=== PATIENT | female | born 1980 | race African-American/Black ===

== ENCOUNTER 2016-11-18 03:45 | Inpatient (IN) | payer OTHER ==
[~2016-11-18 03:45] MED LIST: DEXTROSE 5%-LACTATED RINGERS 1,000 ML IV SCH
[2016-11-18] MEDS ORDERED: PROMETHAZINE HCL 25 MG/1 ML VIAL IVPUSH ONE (08:00)
[2016-11-18] MEDS ORDERED: BUTORPHANOL TARTRATE 1 MG/ML VIAL IVPUSH ONE (08:00)
[2016-11-18] MEDS ORDERED: AMPICILLIN - 100 ML IVPB ONE (08:10)
[2016-11-18] MEDS ORDERED: DEXTROSE 5%-LACTATED RINGERS 1,000 ML IV SCH (08:15)
--- NOTE | 2016-11-18 08:16 | HP ---
Admitting History and Physical - Admission Chief Complaint: labor pains History of Present Illness: 35 y/o at 38.6 weeks comes to labor and delivery with complaints of ctx. Per ppt, started at 145. She was check at 2am with 1-2cm/-3 and iv hydrated. THen re checked at 5am with same exam. She progreesed to 3-4 at 8am. SHe is a transfer from [facility] with good care. Gbs-pos, hiv neg, quant neg, rubella immune, hep neg History Source: Patient Limitations to Obtaining History: No Limitations - Past Medical History CUPROUS CHLORIDE HELPER: No: Alzheimer's, CVA, Dementia, Migraine, Multiple Sclerosis, Peripheral Neuropathy, Parkinson's, Seizure, Syncope, TIA, Vertigo, Other Cardiovascular: No: AFIB, Aneurysm, Aortic Insufficiency, Aortic Stenosis, CAD, CHF, Deep Vein Thrombosis, HTN, Hyperlipdemia, LA, Mitral Insufficiency, Mitral Stenosis, Murmur, Pulmonary Hypertension, Other Pulmonary: No: Asthma, Bronchitis, Cancer, COPD, O2 Dependent, Pneumonia, Previously Intubated, Pulmonary Embolus, Pulmonary Fibrosis, Sleep Apnea, Other Gastrointestinal: No: Ascites, Cancer, Constipation, Crohn's Disease, Diverticulitis, Diverticulosis, Esophageal Varices, Gastritis, GERD, GI Bleed, Hemorrhoids, Hiatal Hernia, Inflamatory Bowel Disease, Irritable Bowel Disease, Pancreatitis, Peptic Ulcer Disease, Ulcerative Colitis, Other Hepatobiliary: No: Cirrhosis, Cholelithiasis, Cholecystitis, Choledocholithiasis , Hepatitis A, Hepatitis B, Hepatitis C, Other Renal/: No: Renal Failure, Renal Inusuff, BPH, Cancer, Hematuria, Hemodialysis , Neurogenic Bladder, Renal Calculi, UTI, Other Reproductive: No: Ectopic , Endometriosis, Fibroids, PID, Polycystic Ovary Syndrome, Postmenopausal, Other ...: 3 ...Para: 2 Heme/Onc: No: Anemia, B12 Deficiency, Bleeding Disorder, Cancer, Current Chemotherapy, Current Radiation Therapy, Hemochromatosis, Hypercoaguable State, Myeloproliferative Synd, Sickle Cell Disease, Sickle Cell Trait, Thrombocytopenia, Other Infectious Disease: No: AIDS, C-Diff, Herpes Zoster, HIV, MRSA, STD's, Tuberculosis, VREF, Other Psych: No: Addictions, Anxiety, Bipolar, Depression, Panic, Psychosis, Schizophrenia, Other Musculoskeletal: No: Bursitis, Chronic low back pain, Hemiparesis, Hemiplegia, Osteoarthritis, Paraplegia, Other Rheumatology: No: Fibromyalgia, Gout, Lupus, Rheumatoid Arthritis, Sarcoidosis, Vasculitis, Other ENT: No: Allergic Rhinitis, Sinusitis, Other Endocrine: No: True's Disease, Hamzah's Disease, Diabetes Insipidus, Diabetes Mellitus, Hyperparathyroidism, Hyperthyroidism, Hypothyroidism, Osteopenia, SIADH, Other Dermatology: No: Basal Cell, Cellulitis, Eczema, Melanoma, Psoriasis, Squamous Cell, Other - Past Surgical History Past Surgical History: No: None, AAA Repair, AICD, Amputation, Appendectomy, Arthrosocopy, AV Fistula/Graft, Bariatric Surgery, Breast Biopsy, Bypass, CABG, Carotid Endarterectomy, Cataract Removal, Cholecystectomy, Colectomy, Colonoscopy, Colostomy, Craniotomy, , Cystectomy, Hernia Repair, Hysterectomy, Ileal Conduit, Ileosotomy, Joint Replacement, Kidney Transplant, Laminectomy, Liver Transplant, Mastectomy, Nephrectomy, Oopherectomy, Orchiectomy, Permanent Pacemaker, Prostatectomy, Splenectomy, Stent, Thoracotomy , TURP, Tonsillectomy, Tubal Ligation, Upper Endoscopy, Valve Replacement, Vasectomy, Vein Stripping/Ligation Home Medications - Allergies Allergies/Adverse Reactions: Allergies Allergy/AdvReac Type Severity Reaction Status Date / Time No Known Allergies Allergy Verified 11/15/16 23:03 - Home Medications Home Medications: Ambulatory Orders Ferrous Sulfate [Feosol] 650 mg PO DAILY 11/16/16 Vitamins (Sjr) - 1 tab PO DAILY 11/16/16 Review of Systems - Review of Systems Constitutional: reports: No Symptoms Eyes: reports: No Symptoms HENT: reports: No Symptoms Neck: reports: No Symptoms Cardiovascular: reports: No Symptoms Respiratory: reports: No Symptoms Gastrointestinal: reports: No Symptoms Genitourinary: reports: No Symptoms Breasts: reports: No Symptoms Reported Musculoskeletal: reports: No Symptoms Integumentary: reports: No Symptoms Neurological: reports: No Symptoms Endocrine: reports: No Symptoms Hematology/Lymphatic: reports: No Symptoms Psychiatric: reports: No Symptoms (some pain from ctx) Physical Examination Vital Signs: Vital Signs Temperature 97.9 F 11/18/16 04:10 Pulse Rate 93 H 11/18/16 04:10 Respiratory Rate 20 11/18/16 04:10 Blood Pressure 129/77 03/23/17 04:10 O2 Sat by Pulse Oximetry (%) Constitutional: Yes: Well Nourished Eyes: Yes: WNL HENT: Yes: WNL Neck: Yes: WNL Cardiovascular: Yes: WNL Respiratory: Yes: WNL Gastrointestinal: Yes: WNL ...Rectal Exam: Yes: Deferred Renal/: Yes: WNL (3cm-3 station, vtx) Extremities: Yes: WNL Integumentary: Yes: WNL Neurological: Yes: WNL ...Motor Strength: WNL Psychiatric: Yes: WNL Assessment/Plan as above admit labs gbs abx continue care
[2016-11-18] MEDS ORDERED: PROMETHAZINE HCL 25 MG/1 ML VIAL IVPUSH PRN (08:17)
[2016-11-18] MEDS ORDERED: BUTORPHANOL TARTRATE 1 MG/ML VIAL IVPUSH PRN (08:17)
[2016-11-18 08:52] VITALS: BMI 33.2
[2016-11-18 08:59] LABS: BASOPHIL 0.3 % (0-2.0); EOSINOPHIL 0.1 % (0-4.5); MCH 23.8 pg (25.7-33.7); MCHC 31.9 g/dl (32.0-36.0); MEAN CELL VOLUME 74.6 fl (80-96); MEAN PLT VOLUME 10.8 fl (7.5-11.1); NEUTROPHILS 73.7 % (42.8-82.8); PLATELET COUNT 273 K/MM3 (134-434); RDW 19.9 % (11.6-15.6); WHITE BLOOD COUNT 12.4 K/mm3 (4.0-10.0)
[2016-11-18 09:05] LABS: INR 0.94 (0.82-1.09); PROTHROMBIN TIME (PATIENT) 10.3 SEC (9.98-11.88)
[2016-11-18 09:08] LABS: ACTIVATED PTT 24.8 SECONDS (26.9-34.4)
[2016-11-18 09:09] LABS: CALCIUM 8.4 mg/dL (8.5-10.1); CREATININE 0.6 mg/dL (0.55-1.02)
[2016-11-18] MEDS ORDERED: TUBERCULIN PPD 5 TU/0.1ML SYRINGE (IN PATIENT USE ONLY) ID ONE (10:00)
[2016-11-18] MEDS ORDERED: FENTANYL/BUPIVACAINE/NS/PF - PCEA - 50 ML DISP.SYRIN EP SCH (10:15)
--- NOTE | 2016-11-18 11:09 | PN ---
Progress Note, Labor Vaginal Exam #1 Labor Exam Date: 11/18/16 Labor Exam Time: 10:53 Heart Rate (range): 140 Dilatation: 6cm Effacement (%): 90 Amniotic Membrane Status: Ruptured (AROM clear moderate) Presentation: Vertex/Position Station: -2 (-2/-1) Remarks: fhr cat-1 uc q3-4 min 8.00 am s/p stadol 2 mg + phenrgan 25 mg iv stat was given 10.20 am s/p epidural labor analgesia . pt receiving Iv Ampicillin for pos GBS as per protocol Selected Entries 11/18/16 10:50 Pulse Rate 83 Blood Pressure 119/77 O2 Sat by Pulse 100 Oximetry (%) Laboratory Tests 11/18/16 11/18/16 11/18/16 08:30 08:30 08:30 WBC 12.4 H Hgb 9.9 L Hct 30.9 L Plt Count 273 Neutrophils % 73.7 Lymphocytes % 17.9 Monocytes % 8.0 Eosinophils % 0.1 Basophils % 0.3 INR 0.94 PTT (Actin FS) 24.8 L Sodium 141 Potassium 3.9 Chloride 109 H Carbon Dioxide 22 BUN 4 L Creatinine 0.6 Random Glucose 87 Calcium 8.4 L RPR Titer 11/18/16 08:30 WBC Hgb Hct Plt Count Neutrophils % Lymphocytes % Monocytes % Eosinophils % Basophils % INR PTT (Actin FS) Sodium Potassium Chloride Carbon Dioxide BUN Creatinine Random Glucose Calcium RPR Titer Nonreactive Vaginal Exam #2 Labor Exam Date: 11/18/16 Labor Exam Time: 11:30 Heart Rate (range): 150 Dilatation: 10 Effacement (%): 100 Amniotic Membrane Status: Ruptured Presentation: Vertex/Position Station: +2 Remarks: fhr cat-1 wants to push
[2016-11-18] MEDS ORDERED: AMPICILLIN - 100 ML IVPB SCH (12:00)
[2016-11-18] MEDS ORDERED: BISACODYL 10 MG SUPP.RECT RC PRN (12:02)
[2016-11-18] MEDS ORDERED: BENZOCAINE 20% 57 GM BOTTLE TP PRN (12:02)
[2016-11-18] MEDS ORDERED: WITCH HAZEL 50% (TUCKS) 40 PAD/JAR PAD TP PRN (12:02)
[2016-11-18] MEDS ORDERED: oxyCODONE HCL 5 MG TABLET PO PRN (12:02)
[2016-11-18] MEDS ORDERED: METHYLERGONOVINE MALEATE 0.2 MG/1 ML AMP IM PRN (12:02)
[2016-11-18] MEDS ORDERED: BENZOCAINE 28 GM HEMORRHOIDAL OINTMENT TP PRN (12:02)
[2016-11-18] MEDS: OXYTOCIN 20 UNITS in 0.9% NS 1,000 ML IV SCH ×2 (12:57→13:15)
--- NOTE | 2016-11-18 13:00 | PN ---
Delivery - Delivery Vaginal Delivery: No Problems, Spontaneous Type of Anesthesia: Epidural Episiotomy/Laceration: None EBL (cc): 300 (cathter output 200 ml ) Delivery, Single - Stages of Labor Date 1st Stage Initiatied: 11/18/16 Time 1st Stage Initiated: 02:00 Date 2nd Stage Initiated: 11/18/16 Time 2nd Stage Initiated: 11:30 Date of Delivery: 11/18/16 Time of Delivery: 11:45 Time Placenta Delivered: 11:50 Placenta: Yes: Spontaneous, Uterine Exploration - Condition of Cook Helper/Tour Production Supervisor Present: No Gender: Female Weight: 6 lb 6 oz Position: Left, OA Total Hours ROM (Hrs/Mins): 0/52 - 1 Minute Total Score: 9 5 Minutes Total Score: 9 - Feeding Plan Initial Plan: Exclusive throughout hospitalization Remarks - Remarks Remarks: 35 yrs , 38.6 weeks, admitted by Dr Sosa in early labor pt transferred care from [facility] to [address] [place] [address] . 3 visits in the clinic . GBS pos , treated with 2 doses of Iv Ampicillin . stadol + phenrgan followed by epidural was given for labor analgesia . intrapartum course uneventful
[2016-11-18] MEDS: IBUPROFEN 600 MG TABLET (FP) PO PRN (16:28)
[2016-11-18] MEDS: ACETAMINOPHEN 325 MG TABLET (FP) PO PRN (16:30)
[2016-11-18] MEDS: FERROUS SO4 325 MG TABLET (FP) PO SCH (17:14)
[2016-11-19 07:41] LABS: BASOPHIL 0.5 % (0-2.0); EOSINOPHIL 0.5 % (0-4.5); MCH 23.7 pg (25.7-33.7); MCHC 31.3 g/dl (32.0-36.0); MEAN CELL VOLUME 75.6 fl (80-96); MEAN PLT VOLUME 10.7 fl (7.5-11.1); NEUTROPHILS 68.4 % (42.8-82.8); PLATELET COUNT 226 K/MM3 (134-434); RDW 20.9 % (11.6-15.6); WHITE BLOOD COUNT 13.3 K/mm3 (4.0-10.0)
[2016-11-19] MEDS: FERROUS SO4 325 MG TABLET (FP) PO SCH ×2 (08:29→17:20)
[2016-11-19] MEDS: IBUPROFEN 600 MG TABLET (FP) PO PRN (08:29)
[2016-11-19] MEDS: ACETAMINOPHEN 325 MG TABLET (FP) PO PRN (08:30)
--- NOTE | 2016-11-19 08:36 | PN ---
Progress Note (short form) - Note Progress Note: ppd 1 doing well, no excess vaginal bleeding CBC, BMP 11/19/16 06:35 11/18/16 08:30 Last Vital Signs Temp Pulse Resp BP Pulse Ox 97.9 F 76 20 127/71 99 11/19/16 05:36 11/19/16 05:36 11/19/16 05:36 11/19/16 05:36 11/18/16 21:38 abdomen soft, uterus firm, non tender no calf tenderness plan ambulate, observe
[2016-11-19 10:08] LABS: ANISOCYTOSIS 2+; HYPOCHROMIA 1+; PLATELET COMMENT2 NO CLUMPING NOTED; PLATELET ESTIMATE ADEQUATE (NORMAL); POLYCHROMASIA FEW
[2016-11-19] MEDS: PRENATAL VITAMINS W/ FOLIC ACID TABLET (FP) PO SCH (10:12)
--- NOTE | 2016-11-19 11:15 | DS ---
Physical Exam-LINE PATROLMAN Vital Signs: Vital Signs Temperature 97.9 F 11/19/16 05:36 Pulse Rate 76 11/19/16 05:36 Respiratory Rate 20 11/19/16 05:36 Blood Pressure 127/71 11/19/16 05:36 O2 Sat by Pulse Oximetry (%) 99 11/18/16 21:38 Constitutional: Yes: Well Nourished, Pallor, Other (no dizziness) Eyes: Yes: WNL HENT: Yes: WNL Neck: Yes: WNL Cardiovascular: Yes: WNL Respiratory: Yes: WNL Gastrointestinal: Yes: WNL ...Rectal Exam: Yes: WNL Renal/: Yes: WNL ....Post : Yes: Uterus firm, Uterus non-tender, Moderate lochia rubra ( perineum intact) Breast(s): Yes: WNL (BF) Musculoskeletal: Yes: WNL Extremities: Yes: WNL. No: Calf Tenderness Edema: LLE: 1+, RLE: 1+ Integumentary: Yes: WNL Neurological: Yes: WNL, Alert, Oriented ...Motor Strength: WNL Psychiatric: Yes: WNL, Alert, Oriented Labs: CBC, BMP 11/19/16 06:35 11/18/16 08:30 Delivery - Delivery Vaginal Delivery: No Problems, Spontaneous Type of Anesthesia: Epidural Episiotomy/Laceration: None EBL (cc): 300 (cathter output 200 ml ) Delivery, Single - Stages of Labor Date 1st Stage Initiatied: 11/18/16 Time 1st Stage Initiated: 02:00 Date 2nd Stage Initiated: 11/18/16 Time 2nd Stage Initiated: 11:30 Date of Delivery: 11/18/16 Time of Delivery: 11:45 Time Placenta Delivered: 11:50 Placenta: Yes: Spontaneous, Uterine Exploration - Condition of Mask Former/Pump Service Supervisor Present: No Gender: Female Weight: 6 lb 6 oz Position: Left, OA Total Hours ROM (Hrs/Mins): 0/52 - 1 Minute Total Score: 9 5 Minutes Total Score: 9 - [place] Feeding Plan Initial Plan: Exclusive throughout hospitalization Remarks - Remarks Remarks: 35 yrs , 38.6 weeks, admitted by Dr Sosa in early labor pt transferred care from [facility] to [address] [place] [address] . 3 visits in the clinic . GBS pos , treated with 2 doses of Iv Ampicillin . stadol + phenrgan followed by epidural was given for labor analgesia . intrapartum course uneventful .post anemia is counselled, she is stable, & asymptomatic discharge on 11/20/16 Discharge Summary Reason For Visit: LABOR Current Active Problems Anemia (Acute) Labor established (Acute) Normal spontaneous vaginal delivery (Acute) Positive GBS test (Acute) with 38 completed weeks gestation (Acute) - Instructions Diet, Activity, Other Instructions: Post Instructions DIET: Continue good diet high in protein, calcium, and iron rich foods. Drink at least eight (8) glasses of water daily in addition to other fluids. ct Regular diet MEDICATIONS: Continue vitamins and iron as previously directed. Motrin and Tylenol may be taken for minor discomfort. ACTIVITY: Mild to moderate exercise may be started in two (2) weeks. Take frequent rest periods. Resume normal activity after six (6) week check up. WOUND CARE OF OPERATIVE SITE: Continue use of perineal bottle until vaginal discharge stops. Keep area clean. Shower daily. Keep abdominal wound dry. Report any drainage or redness to physician. Tub baths, tampons and douches are not permitted for 6 weeks. C t Breast feeding & orBottle feeding BREAST CARE: (For those that are not breast feeding): If engorgement occurs: Wear tight fitting bra. Take Tylenol or Motrin for pain. Apply cold packs (ice in bags to each breast ) FAMILY PLANNING: There are many control alternatives to pursue and they should be discussed at your first office visit. You may resume sexual activity after your six (6) week check up. (Remember, breast feeding is not a contraceptive) NEXT PHYSICIAN APPOINTMENT: Be certain to call for a six (6) week appointment, unless otherwise directed. Call Clinic or got to Emergency Dept if you have any of the following: Heavy vaginal bleeding Painful urination Leg pain Unusual odor noted to vaginal bleeding High fever Red streaking noted on breast Referrals: Pinky Stover MD [Staff Physician] - Disposition: HOME - Home Medications Comprehensive Discharge Medication List: Ambulatory Orders Ferrous Sulfate [Feosol] 650 mg PO DAILY 11/16/16 Vitamins (Sjr) - 1 tab PO DAILY 11/16/16 Acetaminophen [Tylenol .Regular Strength -] 650 mg PO Q3H PRN #0 tablet Ferrous Sulfate [Feosol] 325 mg PO BIDWM 11/19/16 Ibuprofen [Motrin -] 200 mg PO Q4H PRN #0 tablet 11/19/16 Vitamins (Sjr) - 1 tab PO DAILY tablet 11/19/16
[2016-11-19] MEDS ORDERED: INFLUENZA VACCINE 45 MCG/0.5 ML (MDV 16-17) IM ONE (14:00)
[2016-11-19] MEDS ORDERED: SENNOSIDES/DOCUSATE COMBO (SENNA PLUS) TABLET (UD) PO PRN (22:00)
[2016-11-19] MEDS ORDERED: INFLUENZA VACCINE 60 MCG/0.5 ML (P/F DISP.SYRIN 16-17) IM ONE (23:15)
[2016-11-20 07:48] VITALS: BP 130/79; PULSE 63; TEMP 99.2
[2016-11-20] MEDS: FERROUS SO4 325 MG TABLET (FP) PO SCH (08:19)
[2016-11-20] MEDS: PRENATAL VITAMINS W/ FOLIC ACID TABLET (FP) PO SCH (09:57)
--- NOTE | 2016-11-20 12:49 | PN ---
Post Progress Note Post Day: 2 Type of Delivery: Vital Signs: Vital Signs Temperature 99.2 F 11/20/16 07:10 Pulse Rate 63 11/20/16 07:10 Respiratory Rate 18 11/20/16 07:10 Blood Pressure 130/79 11/20/16 07:10 O2 Sat by Pulse Oximetry (%) 99 11/18/16 21:38 Breast Exam: Yes: Soft Uterus: Yes: Fundus Firm Abdomen/GI: Yes: Abdomen soft Lochia: Yes: Rubra Lochia, amount: Small Extremities: Yes: Calves non-tender Perineum: Yes: Intact Activity: Ambulating - Labs Labs: CBC WBC 13.3 K/mm3 (4.0-10.0) H 11/19/16 06:35 RBC 3.54 M/mm3 (3.60-5.2) L 11/19/16 06:35 Hgb 8.4 GM/dL (10.7-15.3) L D 11/19/16 06:35 Hct 26.8 % (32.4-45.2) L 11/19/16 06:35 MCV 75.6 fl (80-96) L 11/19/16 06:35 MCHC 31.3 g/dl (32.0-36.0) L 11/19/16 06:35 RDW 20.9 % (11.6-15.6) H 11/19/16 06:35 Plt Count 226 K/MM3 (134-434) 11/19/16 06:35 MPV 10.7 fl (7.5-11.1) 11/19/16 06:35 Neutrophils % 68.4 % (42.8-82.8) 11/19/16 06:35 Lymphocytes % 22.7 % (8-40) D 11/19/16 06:35 Monocytes % 7.9 % (3.8-10.2) 11/19/16 06:35 Eosinophils % 0.5 % (0-4.5) D 11/19/16 06:35 Basophils % 0.5 % (0-2.0) 11/19/16 06:35 Platelet Estimate Adequate (NORMAL) 11/19/16 06:35 Platelet Comment Few large plts 11/19/16 06:35 Platelet Comment No clumping noted 11/19/16 06:35 Polychromasia Few 11/19/16 06:35 Hypochromic-Microcytic 1+ 11/19/16 06:35 Anisocytosis 2+ 11/19/16 06:35 Macrocytosis 1+ 11/19/16 06:35 Assessment/Plan doing well dc home today
== END 2016-11-20 12:55 | disposition home or self-care (01) | DRG 560 ==
LOC: JDEL 03:45 → JLDR 07:50 → J3W 13:20
PROVIDERS: ADMIT Obstetrics & Gynecology; ATTEND Obstetrics & Gynecology
PROC: 10E0XZZ Delivery of Products of Conception, External Approach (ICD-10-PCS; principal; 2016-11-18)
DX: O99.02 Anemia complicating childbirth (principal); D64.9 Anemia, unspecified; O99.824 Streptococcus B carrier state complicating childbirth; Z3A.38 38 weeks gestation of pregnancy; Z37.0 Single live birth
CPT/HCPCS: 36415; 59409; 80048; 85025; 85610; 85730; 86593; 86850; 86900; 86901; 90686; G0008